=== PATIENT | male | born 1975 | race American Indian/Alaskan Native ===

== ENCOUNTER 2017-12-13 16:28 | Emergency (ER) | payer OTHER ==
[2017-12-13] MEDS ORDERED: MOTRIN PO ONE (19:55)
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
[2017-12-13 20:13] VITALS: BP 154/91
== END 2017-12-13 20:50 | disposition home or self-care (01) ==
LOC: ED 16:28
DX: S39.012A Strain of muscle, fascia and tendon of lower back, initial encounter (principal); I10 Essential (primary) hypertension; V89.2XXA Person injured in unspecified motor-vehicle accident, traffic, initial encounter; Y93.89 Activity, other specified; Y92.89 Other specified places as the place of occurrence of the external cause; Y99.8 Other external cause status
CPT/HCPCS: 99282